=== PATIENT | male | born 1995 | race Caucasian/White ===

== ENCOUNTER 2017-09-13 00:54 | Emergency (ER) | payer OTHER ==
[2017-09-13] MEDS ORDERED: ONDANSETRON 4 MG/2 ML VIAL IVP ONE (01:07)
[2017-09-13] MEDS ORDERED: NS 1,000 ML IV ONE ×2 (01:07→02:09)
[2017-09-13] MEDS ORDERED: HALOPERIDOL LACT 5 MG/ML INJ ONE ×2 (01:12→01:52)
[2017-09-13] MEDS ORDERED: ONDANSETRON 4 MG/2 ML VIAL ONE (01:13)
[2017-09-13] MEDS ORDERED: LORazepam 2 MG/ML INJ ONE (01:19)
[2017-09-13] MEDS ORDERED: LORazepam 2 MG/ML INJ IVP ONE ×2 (01:19→02:44)
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
[2017-09-13] MEDS ORDERED: HALOPERIDOL LACT 5 MG/ML INJ IVP ONE ×2 (01:54→02:30)
[2017-09-13 01:56] VITALS: RESP 18
[2017-09-13 05:27] VITALS: BP 109/53; PULSE 102; TEMP 97.7; O2SAT 99
== END 2017-09-13 05:24 ==
DX: F10.920 Alcohol use, unspecified with intoxication, uncomplicated (principal); V43.02XA Car driver injured in collision with other type car in nontraffic accident, initial encounter
CPT/HCPCS: 96374; G0480; J2060; J2405